=== PATIENT | female | born 1995 | race Caucasian/White ===

== ENCOUNTER 2021-03-09 18:09 | Emergency (ER) | payer BC, SELFPAY ==
[2021-03-09 18:24] VITALS: BP 105/53; PULSE 83; RESP 16; TEMP 37.4; O2SAT 100
--- NOTE | 2021-03-09 19:13 | ED.FEMALEGU ---
HPI - Female Genitourinary General Chief complaint: Urogenital-Female Stated complaint: UTI Time Seen by Provider: 03/09/21 19:00 Source: patient and RN notes reviewed Mode of arrival: ambulatory Limitations: no limitations History of Present Illness HPI Narrative: 25-year-old female who presents to [facility] accompanied by with complaints of suprapubic pressure, cloudy urine this morning with feeling like she needs to urinate after going. Patient is 14 weeks with 1st .Patient states that she has had no vaginal discharge or any bleeding noted. Patient states that she has had no nausea or vomiting or any decrease appetite, drinking fluids well reports similar symptoms to previous episodes of urinary tract infection. Pertinent past history: other (Previous UTIs, 14 weeks ) Related Data Home Medications Medication Instructions Recorded Confirmed BuSpar 03/09/21 Lexapro 03/09/21 multivitamin with minerals 1 cap PO DAILY 03/09/21 03/09/21 [My-Vitalife] Allergies Allergy/AdvReac Type Severity Reaction Status Date / Time No Known Allergies Allergy Verified 03/09/21 18:33 Review of Systems Review of Systems: CONSTITUTIONAL: Denies fever, chills, or sweats. EYES: Denies visual changes, redness, or discharge. ENT: Denies rhinorrhea, congestion, sore throat, or otalgia. CARDIOVASCULAR: Denies chest pain, palpitations, or edema. RESPIRATORY: Denies cough no dyspnea. GASTROINTESTINAL: Reports suprapubic pressure, no nausea, vomiting, or diarrhea. GENITOURINARY: Positive dysuria no visible hematuria. SKIN: Denies rash or itching. MUSCULOSKELETAL: Denies back pain, joint pain, or myalgia. NEUROLOGIC: Denies headache, numbness, or weakness. PSYCHIATRIC: Positive anxiety or depression. All systems reviewed & are unremarkable except as noted in HPI and below PMFSH Past Medical History Medical History (Updated 03/12/21 @ 16:07 by Angie Hamilton NP) Anxiety and depression UTI (urinary tract infection) Surgical History Surgical History (Updated 03/12/21 @ 16:08 by Angie Hamilton NP) No history of previous surgery Family History Family History (Updated 03/12/21 @ 16:06 by Angei Hamilton NP) Other No pertinent family history in first degree relatives Social History Social History (Updated 03/12/21 @ 16:00 by Angie Hamilton NP) Smoking status: Never smoker Alcohol intake: former Substance use: never Living arrangements: with family Gender identity (if verbalized by the patient): Female Exam Narrative: GENERAL: Well-appearing, well-nourished, and in no acute distress. HEAD: Normocephalic, atraumatic. EYES: PERRLA and EOMI. ENT: Nares clear, no rhinorrhea or epistaxis. Mucous membranes moist. TM's normal with good light reflex, throat pink with no lesions or exudates. NECK: Supple.no lymphadenopathy CHEST: Clear to auscultation. No respiratory distress.[id number]% on room air HEART: Regular rate and rhythm. No murmur heard. Normal peripheral pulses. ABDOMEN: Soft, suprapubic tenderness nondistended, normal active bowel sounds. no visible hematuria in urine or any vaginal bleeding, patient is 14 weeks ,No CVA tenderness on exam EXTREMITIES: Normal range of motion. No edema. SKIN: Warm, dry, no rash. NEURO: No focal deficits. Alert and oriented x3. Course Vital Signs Vital signs: Vital Signs Temperature 37.4 C 03/09/21 18:24 Pulse Rate 83 03/09/21 18:24 Respiratory Rate 16 03/09/21 18:24 Blood Pressure 105/53 L 03/09/21 18:24 Pulse Oximetry 100 03/09/21 18:24 Temperature 37.4 C 03/09/21 18:24 Pulse Rate 83 03/09/21 18:24 Respiratory Rate 16 03/09/21 18:24 Blood Pressure 105/53 L 03/09/21 18:24 Pulse Oximetry 100 03/09/21 18:24 MDM - Female Genitourinary Differential Diagnosis Differential diagnosis: Likely urinary tract infection, cervicitis, cystitis and other (dysuria) Medical Records Attestation:
== END 2021-03-09 19:29 | disposition home or self-care (01) ==
PROVIDERS: Emergency Provider Registered Nurse
DX: N39.0 Urinary tract infection, site not specified (principal)
CPT/HCPCS: 81003; 87086; 99203; G0463